=== PATIENT | female | born 1985 | race Caucasian/White ===

== ENCOUNTER 2016-06-18 05:27 | Inpatient (IN) | payer MEDICARE, MEDICAID ==
[2016-06-16 12:03] LABS: BASOPHILS 0.5 % (0.0-2.0); EOSINOPHILS 8.1 % (0-7); HEMATOCRIT 40.6 % (36.0-48.0); HEMOGLOBIN 13.8 g/dL (12-16); IMMATURE GRANULOCYTES 0.2 % (0-5); LYMPHOCYTES 46.1 % (15-50); MCH 28.1 pg (26.0-34.0); MCV 82.7 fL (80.0-100.0); MEAN PLATELET VOLUME 10.2 fL (7.4-10.4); MONOCYTES 5.2 % (2-11); NEUTROPHILS 39.9 % (40-80); RBC 4.91 10x6/uL (4.00-5.40); RDW 12.1 % (11.5-14.5); WBC 6.3 10x3/uL (4.8-10.8)
[2016-06-16 12:09] LABS: PLATELET COUNT 206 10x3/uL (130-400)
[2016-06-16 12:15] LABS: CALC OSMOLALITY 282 mosm/kg (275-300); CALCIUM 9.4 mg/dL (8.5-10.1); CARBON DIOXIDE 28.7 mmol/L (21.0-32.0); CHLORIDE - SERUM 104 mmol/L (98-107); CREATININE - SERUM 0.9 mg/dL (0.6-1.3); POTASSIUM - SERUM 4.3 mmol/L (3.5-5.1); SODIUM 139 mmol/L (136-145); UREA NITROGEN 17 mg/dL (7-18); eGFR NON AFRICAN AMERICAN 78 mL/min (90-120)
[2016-06-16 12:17] LABS: GLUCOSE 146 mg/dL (74-106)
[~2016-06-18] VITALS: Ht 162.6 cm; Wt 90.3 kg
[2016-06-18] VITALS (15 sets, daily range): BP systolic 98–148; BP diastolic 64–85; BMI 34.4; BMI 34.2
[~2016-06-18 05:27] MED LIST: ABILIFY15 MG PO; ALEVE220 MG PO; B-12 DOTS500 MCG; BYSTOLIC10 MG PO; CARAFATE1 G/10 ML PO; CELEXA40 MG PO; CYCLOBENZAPRINE10 MG PO; DEPO-PROVER150 MG/ML IM; HUMALOG 30100 UNITS/ SC; LANTUS INSULIN10 ML SC; LEVOTHROID50 MCG PO; LISINOPRIL10 MG PO; MAXALT MLT10 MG/TAB PO; NORCO 10/325 TA1 TA1 PO; NOVOLOG MIX 70/10 ML SQ; PEPCID20 MG PO; PHENERGAN25 M1 PO; PREVACID SOLUTA30 MG PO; PROAIR HFA8.5 GM INH; SEPTRA DS TABLE1 TAB PO; TIROSINT137 MCG PO; ULTRAM50 MG PO; XANAX1 MG PO; XANAX2 MG PO; ZANTAC150 MG PO; ZOFRAN4 MG PO
[2016-06-18 06:30] LABS: HCG URINE NEGATIVE (NEGATIVE)
--- NOTE | 2016-06-18 10:15 | NUR ---
PT WAS RECEIVED FROM RECOVERY ROOM . PT WAS AWAKE AND ALERT. PT WAS TRANSFERRED TO HER BED. PT IS CRYING STATING THAT SHE IS IN SO MUCH PAIN. IV LEFT WRIST IS PATENT AND SEMICONDUCTOR TESTING GROUP LEADER INITIATED. 01. MG Q 10 MIN. 0.4 MG BOLUS WAS GIVEN. PT WAS INSTRUCTED ON USE OF SEMICONDUCTOR TESTING GROUP LEADER. HIDALGO IS INTACT. URINE IS BLUE GREEN IN COLOR FROM METHYLENE BLUE. HER MOTHER IS AT BEDSIDE. LUNGS- CLEAR. HEART- RRR. ABDOMEN -SOFT WITH TENDERNESS NOTED. BIKINI LINE INCISION WITH PRIMAPORE DRESSING. CLEAN, DRY AND INTACT. EXTREMITIES WITH SCD'S. BED IS LOW, CALL LIGHT IN REACH AND SIDE RAILS UP X 2.
--- NOTE | 2016-06-18 11:30 | NUR ---
PT REFUSED SCD'S. SHE STATES THAT SHE CANNOT WEAR THEM BECAUSE SHE HAS A REATION TO THEM.
--- NOTE | 2016-06-18 11:34 | NUR ---
PT STILL CRYING WITH PAIN. GAVE HER A BOLUS OF 0.4 MG.
--- NOTE | 2016-06-18 11:50 | NUR ---
DR COOK TO SEE PT.
--- NOTE | 2016-06-18 13:19 | NUR ---
PT BLOOD SUGAR WAS 226. CALLED DR. COOK TO INFORM OF RESULTS. HE ORDERED 2 UNITS OF REGULAR INSULIN TO BE GIVEN NOW AND HE WILL PUT HER ON A SLIDING SCALE.
--- NOTE | 2016-06-18 14:35 | NUR ---
PT LYING IN BED. REQUESTS DIET SPRITE AND A CUP OF ICE. PT DENIES FURTHER NEEDS AT THIS TIME. SRU X2. BED IN LOWEST POSITION. PHONE AND CALL LIGHT WITHIN REACH.
--- NOTE | 2016-06-18 15:00 | NUR ---
REASSESSED PT BLOOD SUGAR. BLOOD SUGAR LEVEL 180 MG/DL. PT REQUESTED TO USE HER OWN FINGER STICK NEEDLE. REFUSED OURS. PT DENIES OTHER NEEDS. BED IN LOWEST POSITION. PHONE AND CALL LIGHT WITHIN REACH. SRU X2.
--- NOTE | 2016-06-18 15:15 | NUR ---
BS WAS 180. CALLED TO DR COOK. HE STATES THIS IS OK AND TO RECHECK IN 4 HRS.
--- NOTE | 2016-06-18 15:19 | NUR ---
PT LYING IN BED. HUNG NEW BAG OF NS. DENIES NEEDS AT THIS TIME. BED IN LOWEST POSITION. PHONE AND CALL LIGHT WITHIN REACH. SRU X2.
--- NOTE | 2016-06-18 15:25 | NUR ---
PT IS QUESTIONING ABOUT WHAT DR COOK PLANS ON DOING WITH HER BS'S. I TOLD HER I CALLED HIM ABOUT HER REPEAT BS BEING 180 AND HE WAS OK WITH THIS AT THIS TIME. SHE ASKED WHAT HE WAS GOING TO DO WITH HER MEDS. I TOLD HER I TRIED TO CONSULT DR NARANJO TO SEE PT AND HE DOES NOT COME TO [facility].I ASKED WHO HER PRIMARY CARE DOC IS AND SHE SAID DR TRISTIN ALCALA WHO ALSO DOES NOT COME TO [facility]. SHE STATES AN ENDOCRONOLIST IN [place] SAW HER DOING HER AND CONTROLLED HER BS'S BUT HE ONLY SEES WOMEN WHO ARE WITH DIABETES. SHE HAS AN APPT TO GET ESTABLIHED WITH DR NARANJO IN AUGUST.
--- NOTE | 2016-06-18 16:26 | NUR ---
CHANGED PTS BED PAD. NO BLOOD NOTED TO PAD. DRIED BETADINE NOTED ON PAD. PT TOLERATED WELL. REQUESTED JELLO. DENIES FURTHER NEEDS. BED IN LOWEST POSITION. SRU X2. PHONE AND CALL LIGHT WITHIN REACH.
[2016-06-18 16:35] LABS: BASOPHILS 0.1 % (0.0-2.0); EOSINOPHILS 0.6 % (0-7); HEMATOCRIT 35.5 % (36.0-48.0); HEMOGLOBIN 11.7 g/dL (12-16); IMMATURE GRANULOCYTES 0.2 % (0-5); LYMPHOCYTES 19.4 % (15-50); MCH 27.7 pg (26.0-34.0); MCV 84.1 fL (80.0-100.0); MEAN PLATELET VOLUME 10.3 fL (7.4-10.4); MONOCYTES 5.2 % (2-11); NEUTROPHILS 74.5 % (40-80); RBC 4.22 10x6/uL (4.00-5.40); RDW 12.2 % (11.5-14.5); WBC 10.1 10x3/uL (4.8-10.8)
[2016-06-18 16:37] LABS: PLATELET COUNT 157 10x3/uL (130-400)
[2016-06-18 16:47] LABS: CALCIUM 7.5 mg/dL (8.5-10.1); CARBON DIOXIDE 23.7 mmol/L (21.0-32.0); CREATININE - SERUM 1.2 mg/dL (0.6-1.3); POTASSIUM - SERUM 4.7 mmol/L (3.5-5.1)
--- NOTE | 2016-06-18 17:08 | NUR ---
PT REQUESTED TO HAVE HER BS CHECKED EARLIER. IT WAS EXPLAINED TO HER THAT DR COOK ORDERED FOR US TO CHECK 4 HOURS FROM LAST ONE WHICH WILL BE 7:00PM. SHE STATES SHE ATE SOME JELLO AND THAT SHE NEEDS 2 UNITS OF INSULIN BECAUSE HER BS IS GOING TO GO UP. SHE FINISHED THE JELLO ABOUT 1630. SHE WANTED A BS NOW. BS DONE AND IT WAS 145. SHE STILL DEMANDED INSULIN. I TOLD HER THAT I DO NOT HAVE AN ORDER FOR THIS AND COULD NOT GIVE THIS TO HER. SHE ASKED ME TO CALL THE COMMERCIAL SERVICE TECHNICIAN. I CALLED CRISTI AND EXPLAINED WHAT WAS GOING ON. SHE STATES SHE WILL TRY TO COME SOON SHE CAN. SHE HAS 3 PTS TO GET BEDS FOR.
--- NOTE | 2016-06-18 18:03 | NUR ---
DR COOK HERE TO TALK TO PT. HE IS GOING TO PUT IN NEW ORDERS
--- NOTE | 2016-06-18 19:30 | NUR ---
ASSESSMENT PER FLOW SHEET, VS PER ROLAND KRISHNAMURTHY RN, IV IN LEFT WRIST INTACT WITH NO REDNESS OR EDEMA INFUSING NS VIA PUMP AT 125 ML/HR, DILAUDID ROPEWALK ROPE MAKER FOR PAIN MANAGEMENT, SEE ERIC SHARMA WITH DRESSING INTACT WITH DRIED DRAINAGE NOTED, HIDALGO CATH INTACT DRAINING METHYLINE BLUE URINE, FRESH ICE PACK TO ABD, PT ENC TO DRINK PLENTY OF FLUIDS, PT REPORTS "A LITTLE FLATUS", PT INQUIRES ABOUT TORADOL, INFORMED PT THAT I WILL SEE IF ITS DUE AND WILL ADM IT, PT VERBALIZES UNDERSTANDING, PT REFUSE SCD'S, PT INFORMED OF WHY SCD'S NEED TO BE APPLIED, PT STILL REFUSES, PT INST ON AND DEMONSTRATED INCENTIVE SPIROMETER WITH GOOD EFFORT, SPOUSE AT BEDSIDE, TRASH REMOVED
--- NOTE | 2016-06-18 19:57 | NUR ---
ADM TORADOL SIVP PER MD ORDERS, SEE EMAR
--- NOTE | 2016-06-18 20:05 | NUR ---
PT REQUESTED AND SERVED FRESH H20, DENIES FURTHER NEEDS
--- NOTE | 2016-06-18 21:00 | NUR ---
PT REFUSED TO HAVE FSBS, STATES "I DID MY OWN", PT REPORTS FSBS 122, PT EATING SANDWICH AT THIS TIME, PT REQUESTS XANAX AT 2129, INFORMED PT THAT I WILL BRING IT IN AT THAT TIME, BEDDING PROVIDED TO SPOUSE
--- NOTE | 2016-06-18 21:28 | NUR ---
ADM XANAX PO PER MD ORDERS, SEE EMAR, PT DENIES FURTHER NEEDS
--- NOTE | 2016-06-18 22:21 | NUR ---
PT STATES "I THINK I NEED TO CHECK MY BS, I THINKS ITS GOING UP", INFORMED PT THAT I REALLY NEED TO CHECK IT AT THIS TIME, PT AGREES, FSBS 226, INFORMED PT THAT I WILL ADM INSULIN, PT VERBALIZES UNDERSTANDING, SPOUSE AT BEDSIDE
--- NOTE | 2016-06-18 22:25 | NUR ---
LISA KEN, SPORTS MANAGEMENT INTERNSHIP, NOTIFIED FOR HUMALOG
--- NOTE | 2016-06-18 22:27 | NUR ---
PT INFORMED THAT I HAD TO CALL CHOIR TEACHER FOR HUMALOG, PT STATES "I CAN JUST TAKE THE HUMILIN", INFORMED PT THAT I CANNOT ADM THAT DUE TO NO ORDER, PT THEN STATES "I HAVE MY OWN HERE, CAN I JUST TAKE IT", INFORMED PT THAT SHE CANNOT USE OWN MEDS, PT THEN STATES "WELL, IF ITS TOO LONG BEFORE I GET MY INSULIN, WE'LL HAVE TO RETAKE MY BS", INFORMED PT THAT I WILL RETAKE IT, PT REPORTS GOWN IS WET DUE TO ICE PACK LEAKING, ICE PACK REMOVED, GOWN CHANGED, PT DENIES FURTHER NEEDS, SPOUSE AT BEDSIDE
--- NOTE | 2016-06-18 23:20 | NUR ---
INSULIN TO THE FLOOR PER LISA EKN, TICK INSPECTOR
--- NOTE | 2016-06-18 23:22 | NUR ---
PT AWAKE, OBTAINED FSBS 348, ADM HUMALOG PER MD ORDERS, SEE EMAR, VERIFIED PER THIS RN AND ROLAND KRISHNAMURTHY, RN, VS OBTAINED, PT REPOSITIONED TO RIGHT SIDE WITH PILLOW BEHIND BACK AND BETWEEN KNEES, PT DENIES NEEDS, SPOUSE AT BEDSIDE
--- NOTE | 2016-06-19 00:15 | NUR ---
PT HOT TAR ROOFER HELPER LIGHT, PT REPOSITIONED TO LEFT SIDE WITH PILLOW BEHIND BACK AND BETWEEN KNEES FOR COMFORT AND SUPPORT, PT ASKS ABOUT TORADOL, INFORMED PT THAT IT WAS NOT DUE UNTIL 2AM AND THAT I WILL ADM IT THEN, PT VERBALIZES UNDERSTANDING, DENIES FURTHER NEEDS, SPOUSE AT BEDSIDE
--- NOTE | 2016-06-19 00:45 | NUR ---
PT ICT HELP DESK OFFICER LIGHT, PT TEARY EYED, REQUESTS ANOTHER DOSE OF XANAX, PT STATES "DR COOK TOLD ME I COULD HAVE ANOTHER DOSE AFTER AN HOUR IF THE FIRST DOSE DIDN'T WORK, I TAKE 1-2MG A DAY", INFORMED PT THAT I WILL HAVE TO CALL THE DR COOK
--- NOTE | 2016-06-19 01:05 | NUR ---
DR SIDDIQI NOTIFIED, REPORT OF PTS ANXIETY AND NEEDING ANOTHER DOSE OF XANAX, ORDERS RECEIVED TO ADM ANOTHER DOSE, SEE EMAR
--- NOTE | 2016-06-19 01:11 | NUR ---
ADM XANAX PO PER MD ORDERS WITH DIET COLA, PT REPOSITIONED TO RIGHT SIDE WITH PILLOW BEHIND BACK AND BETWEEN KNEES FOR COMFORT AND SUPPORT, PT AGAIN ASKS ABOUT TORADOL,INFORMED PT IT WASN'T DUE TILL 2AM AND THAT I WILL COME IN SHORTLY TO ADM IT, PT DENIES FURTHER NEEDS, SPOUSE AT BEDSIDE
--- NOTE | 2016-06-19 01:51 | NUR ---
ADM TORADOL SIVP PER MD ORDERS, SEE EMAR
--- NOTE | 2016-06-19 02:15 | NUR ---
PT RATES INC PAIN 11/14, PT STATES "I DON'T THINK THIS DILAUDID IS EVEN WORKING, IT WAS WORKING BETTER EARLIER", INFORMED PT THAT SHE IS GETTING THE SAME AMOUNT OF DILAUDID SHE HAS BEEN GETTING
--- NOTE | 2016-06-19 03:00 | NUR ---
PT FLIGHT OPERATIONS INSPECTOR LIGHT, PT REPOSITIONED TO LEFT SIDE WITH PILLOW BEHIND BACK AND BETWEEN KNEES FOR COMFORT AND SUPPORT, PT STATES "I'M FEELING A LITTLE BETTER NOW", DENIES FURTHER NEEDS, SPOUSE AT BEDSIDE
[2016-06-19 04:32] VITALS: BP 102/70
--- NOTE | 2016-06-19 04:32 | NUR ---
PT AWAKE, VS OBTAINED, FSBS 149, I&O'S COLLECTED, PT RATES INC PAIN 12/14, PUSHES LOST CHARGE CARD CLERK BUTTON AT THIS TIME, REQUESTED AND SERVED DIET COLA, PT DENIES FURTHER NEEDS
--- NOTE | 2016-06-19 05:30 | NUR ---
NEW BAG OF LR HUNG PER MD ORDERS, SEE EMAR, PT REQUESTS TO SLEEP AND NOT BE WOKE UP, INFORMED PT THAT DAY SHIFT WILL BE IN TO DO ASSESSMENT, PT STATES "I WANT TO SLEEP, I ONLY WANT THE DOCTOR TO COME IN AND WAKE ME UP BEFORE 8, I KNOW THEY CAN WAIT TILL 8 TO WAKE ME WHEN I HAVE MY BLOOD SUGAR CHECKED", INFORMED PT THAT I WILL PASS THAT ON TO DAY SHIFT, PT DENIES FURTHER NEEDS
--- NOTE | 2016-06-19 07:00 | NUR ---
SHIFT REPORT TO DAY SHIFT
[2016-06-19 07:18] LABS: BASOPHILS 0.3 % (0.0-2.0); EOSINOPHILS 5.4 % (0-7); HEMATOCRIT 32.7 % (36.0-48.0); HEMOGLOBIN 10.5 g/dL (12-16); IMMATURE GRANULOCYTES 0.2 % (0-5); LYMPHOCYTES 30.4 % (15-50); MCH 27.3 pg (26.0-34.0); MCHC 32.1 g/dL (31.0-37.0); MCV 85.2 fL (80.0-100.0); MEAN PLATELET VOLUME 10.1 fL (7.4-10.4); MONOCYTES 5.7 % (2-11); PLATELET COUNT 138 10x3/uL (130-400); RBC 3.84 10x6/uL (4.00-5.40); RDW 12.2 % (11.5-14.5)
[2016-06-19 07:19] LABS: WBC 6.1 10x3/uL (4.8-10.8)
[2016-06-19 07:36] LABS: CARBON DIOXIDE 25.2 mmol/L (21.0-32.0); CREATININE - SERUM 1.1 mg/dL (0.6-1.3); POTASSIUM - SERUM 4.2 mmol/L (3.5-5.1)
--- NOTE | 2016-06-19 07:45 | NUR ---
JOSENET AWAKE AND ALERT, SITTING UP IN HER BED. VISITOR SLEEPING ON THE FLOOR, COVERED WITH BLANKETS. DENIES NEEDS AT THIS TIME. SHE IS ANXIOUS ABOUT HER MEDICATIONS. REASSURED HER THAT WE WOULD GET THE DOSING FOR HER INSULIN ALL STRAIGHTENED OUT. DR. COOK HAS BEEN IN TO VISIT. SCD'S ARE ON AND PUMPING.
--- NOTE | 2016-06-19 08:25 | NUR ---
MARIA ALEJANDRA'S FSBS 257. SHE HAS ASSESSED HER BREAKFAST AND CALCULATED THE CARBOHYDRATES THAT ARE THERE. USING THIS AND THE VALUE OF HER FSBS SHE STATES THAT SHE SHOUULD RECEIVE 9 UNITS OF HUMALOG.
--- NOTE | 2016-06-19 08:35 | NUR ---
CALL PLACED TO DR. COOK TO CONFIRM HER DOSAGE. NEW ORDERS RECEIVED.
--- NOTE | 2016-06-19 08:40 | NUR ---
MEDICATIONS GIVEN, DISCUSSED ANOTHER BREAKFAST. HERS HAS BECOME COLD. SHE ALSO STATES THAT SHE FEELS LIKE SHE NEEDS HER BYSTOLIC AND LISINOPRIL THAT SHE TAKES AT HOME. SHE EXPLAINED CLEARLY THAT SHE CALCULATES HER CARBS FROM EXPERIENCE. 15 CARBS= 1 UNIT OF HUMALOG IN ADDITION TO THE UNITS DUE FOR SLIDING SCALE. FOR 150 FSBS SHE TAKES 2 UNITS PLUS 1 UNIT FOR EACH 25 POINTS ABOVE THAT.
[2016-06-19 10:07] VITALS: Ht 162.6 cm; Wt 90.3 kg
[2016-06-19 10:10] VITALS: BP 110/68
--- NOTE | 2016-06-19 10:10 | NUR ---
CALL PLACED TO DR. COOK REGARDING HER MEDICATIONS FOR CONFIRMATION. THE PATINET WILL AGREE TO TAKE 10U OF LANTUS THIS MORNING AND THEN THE 36 SCHEDULED UNITS THIS EVENING. RANGE OF HUMALOG GIVEN FOR PATIENT CALCULATION OF CARBS AND COVERAGE.
--- NOTE | 2016-06-19 10:30 | NUR ---
HIDALGO CATHETER REMOVED WITH THE BALLOON FULLY INTACT. IV SITE IS WITHOUT REDNESS, SIGNS OF INFILTRATION. ORAL PAIN MEDICATIONS GIVEN. PATIENT STATES THAT SHE DOESN'T WANT TO WAIT TO TAKE EITHER OF HER HEART MEDICATIONS BUT TO TAKE THEM NOW, TOGETHER. B/P 110/68. GIVEN. SPOUSE, GRANDMOTHER AT THE [facility]. ASSISTED THE PATINET TO HER FEET. SHE DENIED BEING DIZZY OR LIGHTHEADED. NO INCREASED PAIN. SHE WAS AMBULATING AROUND THE ROOM WITHOUT DIFFICULTY WHEN I LEFT THE ROOM.
--- NOTE | 2016-06-19 12:10 | NUR ---
FSBS 233. SHE CALCULATED INSULIN DOSE FOR COVERAGE. RESTING IN BED/ HI BERG. NO OTHER NEEEDS VOICED.
--- NOTE | 2016-06-19 13:45 | NUR ---
MARIA ALEJANDRA OUT AMBULATING IN THE HALLWAY WITH FAMILY.
--- NOTE | 2016-06-19 14:30 | NUR ---
PATIENT CALLED FOR A PERCOCET AND XANAX. SHE RATES HER PAIN A 7. LIGHTS ARE OUT. SPOUSE RESTING IN THE BEDSIDE CHAIR.
--- NOTE | 2016-06-19 15:01 | NUR ---
PATIENT RESTING QUIETLY WITH EYES CLOSED. LIGHTS OUT, SPOUSE IN THE BED SDIE CHAIR ALSO RESTING WITH EYES CLOSED.
--- NOTE | 2016-06-19 15:21 | NUR ---
PATIENT OUT AMBULATING IN THE HALLWAY.
--- NOTE | 2016-06-19 16:27 | NUR ---
PATINET RESTING QUIETLY WITH EYES CLOSED. LIGHTS OUT. DID NOT DISTURBED.
--- NOTE | 2016-06-19 18:05 | NUR ---
PATIENT MEDICATED FOR PAIN SHE RATES AN 8. WILL F/U WITH A PERCOCET AT REASSESSMENT IF REMAINS ELEVATED. SHE DECLINES HER HUMALOG AT THIS. DENIES HUNGER. WANTS LANTUS AT 2100.
--- NOTE | 2016-06-19 18:30 | NUR ---
PATIENT SITTING UP ON THE BEDSIDE. PERCOCET GIVEN. WISHED HER LICK WITH HER RECOVERY
--- NOTE | 2016-06-19 19:05 | NUR ---
RCVD PT FROM DAY SHIFT RN. PT SITTING IN BED, HOB 45 DEGREES. PT REPORTS PAIN 7/10 UNRELIEVED BY PERCOCET GIVEN 1 HR PREVIOUSLY. EDU PT ON PAIN MEDICATIONS AND COMFORT MEASURES TO RELIEVE ABD/INCISIONAL PAIN. PT VERBALIZED UNDERSTANDING. WARM BLANKET PLACED OVER INCISION. PERIPAD PLACED ON INCISION TO KEEP DRY. INCISION C/D/I WITH HAM. 18 PIV TO LT WRIST SL NOTED. HEART S1, S2. BREATH SOUNDS CLEAR & UNLABORED X2. BOWEL SOUNDS ACTIVE X4. SKIN WARM AND DRY. NO EDEMA NOTED. NO DISCHARGE NOTED ON PERIPAD. NO BLOOD NOTED OR REPORTED. PT IS VOIDING WELL AT THIS TIME. PT REPORTS SHE HAS NOT SHOWERED. EDU PT ON COMFORT MEASURES FOR PAIN WITH SHOWERING. PT VERBALIZED UNDERSTANDING. PT ON REGULAR DIET. PT REPORTS NOT TAKING LANTUS LAST DOSE AND REQUESTS NEXT DOSE TO BE GIVEN @ 2100. PT REPORTS NOT EATING DINNER STATING "THE HAMBURGER TASTES LIKE CARDBOARD." ADV PT WILL LOCATE A SANDWICH TRAY WE HAVE NONE ON THIS UNIT. PT VERBALIZED UNDERSTANDING. PT REQUESTS STOOL SOFTENER. PER ORDERS DR NIÑO MAY GIVE DOCULAX PO. PT DENIES FURTHER NEEDS AT THIS TIME. BED LOW. WHEELS LOCKED. CL IN REACH. SIDE RAILS UP X2.
[2016-06-19 19:10] VITALS: BP 96/57
--- NOTE | 2016-06-19 21:41 | NUR ---
PEPCID GIVEN PER ORDERS. SEE EMAR. LANTUS 36 U GIVEN PER ORDERS @ 2146 VIA INSULIN SYRINGE. VERIFIED AMOUNT WITH Aron KRISHNAMURTHY RN. AND SHOWN TO PT. PT VERBALIZES UNDERSTANDING. INJ GIVEN SUB Q IN LEFT ARM. PT ZENOBIA. WELL. WARM BLANKET PROVIDED TO PLACE ON ABD. PT SAYS THE WARMTH HELPS SOME. DENIES FURTHER NEEDS. WILL CONTINUE TO MONITOR.
--- NOTE | 2016-06-19 21:41 | NUR ---
PT C/O PAIN 01/14 @ INCISION. PT REQUESTS & RECEIVES PERCOCET X1 TAB. SEE EMAR. PT DENIES FURTHER NEEDS AT THIS TIME.
--- NOTE | 2016-06-19 22:30 | NUR ---
PAIN REASSESSMENT COMPLETED AT THIS TIME. PT RATES PAIN 6/10 CURRENTLY AND SAYS IT'S FEELING SOMEWHAT BETTER. PT DENIES FURTHER NEEDS AT THIS TIME.
--- NOTE | 2016-06-19 22:35 | NUR ---
XANAX AND DULCOLAX GIVEN PER ORDERS. SEE EMAR. PT RATES PAIN 9/10 CURRENTLY AND STATES, "I JUST CAN'T GET COMFORTABLE BECAUSE OF THE PAIN." EDU PT ON COMFORT MEASURES OF POSITIONING, SHOWERING FOR HEAT, AND WARM BLANKET OVER INCISION. PT VERBALIZES UNDERSTANDING AND DENIES FURTHER NEEDS AT THIS TIME.
--- NOTE | 2016-06-19 23:43 | NUR ---
PT C/O IV IRRITATING AND SKIN ITCHING AROUND SITE. PT REQUESTS REMOVAL. PIV D/C AT THIS TIME. CATH TIP INTACT. BANDAID PLACED OVER SITE. PT ZENOBIA WELL. PT REQUESTS & RECEIVES MOTRON 600 MG X1 TAB FOR PAIN RATED 7/10. PT ALSO REQUESTS & RECEIVES ICE AND DIET COLA. PT DENIES FURTHER NEEDS AT THIS TIME. WILL CONTINUE POC.
[2016-06-19 23:50] VITALS: BP 101/64
--- NOTE | 2016-06-20 00:36 | NUR ---
PT OUT OF ROOM TO GET CUP OF ICE. PT RATES PAIN 8/10 CURRENTLY AND STATES "I'M STARTING TO GET ANTSY BECAUSE OF THE PAIN AND NEEDED TO GET UP." PT REQUESTS & RECEIVES ANOTHER WARM BLANKET TO PLACE ON ABD AND DENIES FURTHER NEEDS.
--- NOTE | 2016-06-20 01:28 | NUR ---
PAIN 7/10 TO ABD, SHARP/SHOOTING/ACHING THAT IS CONSTANT. PERCOCET GIVEN PER ORDER. PT REQUESTED FSBS TO BE CHECKED "I JUST FEEL WERID." FSBS DONE PER PT REQUEST WITH A READING OF 225, PT STATES THAT SHE IS GOING TO TRY TO REST FOR A "BIT ONCE THE PAIN MED KICKS IN." WILL CONT MONITOR AND ASSIST PRN.
--- NOTE | 2016-06-20 02:42 | NUR ---
pt to nurse desk with c/o pain 01/14 in abd at this time. pt states "no matter what I do the pain doesn't go away and I just keep waking up. It feels like someone is poking me with a hot poker and just stabbing me with it." edu pt on comfort measures, warm shower, repositioning in bed, etc. pt verbalizes understanding. says she is "going to walk with to the vending machine." edu pt on pain medication schedule. pt verbalizes understanding. will continue poc.
[2016-06-20 04:14] VITALS: BP 114/56
--- NOTE | 2016-06-20 04:15 | NUR ---
PAIN 5/10, MOTRIN GIVEN, SEE EMAR. MIMS. SPOUSE AT BEDSIDE. PT REQUESTED PERCOCET STATING THAT SHE DOESN'T REMEMBER TAKING IT. REVIEWED WITH PT THAT MED WAS GIVEN AT 0128. SPOUSE TOLD PT THAT SHE HAD TAKEN PAIN MEDICATION. DENIES NEEDS AT THIS TIME. WILL CONT TO MONITOR.
--- NOTE | 2016-06-20 04:58 | NUR ---
PAIN REASSESSMENT COMPLETED. PT SLEEPING AT THIS TIME. RESPIRATIONS REGULAR, NO S/S OF DISTRESS NOTED.
--- NOTE | 2016-06-20 05:31 | NUR ---
PERCOCET X1 TAB GIVEN PER PT REQUEST. PT DENIES FURTHER NEEDS AT THIS TIME. WILL CONTINUE TO MONITOR.
--- NOTE | 2016-06-20 06:22 | NUR ---
PAIN REASSESSMENT COMPLETED. PT RESTING. EYES CLOSED, RESP EVEN & UNLABORED, PT SNORING LOUDLY. PT LEFT UNDISTURBED AT THIS TIME.
[2016-06-20 07:35] VITALS: BP 103/69
--- NOTE | 2016-06-20 07:35 | NUR ---
PT CALLS ON LIGHT. THIS NURSE TO ROOM. PT STATES "I THINK IT'S TIME FOR MY MEDICINE". VSS.
--- NOTE | 2016-06-20 07:55 | NUR ---
PT AWAKE, ALERT, ORIENTED, UP AND ABOUT IN ROOM AND HALLWAY. LOW TRANSVERSE ABD INC C/D/I WITH HAM. FSBS 292, HUMALOG 11 U GIVEN PER PT SLIDING SCALE. SIG OTHER ASLEEP IN FLOOR. DIET PROVIDED. PT ANTICIPATES D/C WHEN DR. NIÑO HERE FOR ROUNDS.
--- NOTE | 2016-06-20 09:07 | NUR ---
PT C/O RADIATING PAIN OF "7" ON 0-10 PAIN SCALE FROM "LOWER ABDOMEN TO BACK AND DOWN HIPS". PERCOCET 10/325 GIVEN PO ORDERED. PT INSTRUCTED ON MED. VERBALIZES UNDERSTANDING. PT REFUSES XANAX AT THIS TIME. STATES "IT'S ONLY NEEDED AND I DON'T NEED IT RIGHT NOW".
--- NOTE | 2016-06-20 09:54 | NUR ---
SITTING UP IN BED. STATES PAIN RELIEF WITH RX.
--- NOTE | 2016-06-20 10:40 | NUR ---
DR. NIÑO HERE FOR ROUNDS.
[2016-06-20] MEDS ORDERED: PERCOCET 10/3251 TA1 PO (11:19)
[2016-06-20] MEDS ORDERED: MOTRIN600 MG PO (11:19)
--- NOTE | 2016-06-20 11:46 | NUR ---
D/C INSTRUCTIONS EXPLAINED TO PT. VOICED UNDERSTANDING. COPIES OF ALL GIVEN, WELL WRITTEN RX'S FOR PERCOCET 10 AND MOTR[address] COOK. D/C'D HOME VIA W/C TO PRIVATE CAR.
--- NOTE | 2016-06-24 12:41 | OP ---
PATIENT NAME: MALIK RIZVI MEDICAL RECORD: [id number] :86 LOCATION:[id number] ADMISSION DATE:06/18/16 SURGEON: SUDHEER VICTORIA MD DATE OF OPERATION: 06/18/2016 PREOPERATIVE DIAGNOSES: Menorrhagia and pelvic pain. POSTOPERATIVE DIAGNOSES: 1. Likely adenomyosis 2. Pelvic adhesions. PROCEDURE: Total abdominal hysterectomy and lysis of adhesions. SURGEON: Sudheer Victoria MD ESTIMATED BLOOD LOSS: 300 cc. ANESTHESIA: General endotracheal. INTRAVENOUS FLUIDS: Per anesthesia records. SPECIMENS: Uterus with cervix. FINDINGS: 1. Dense adhesions involving the distal fallopian tubes and infundibulopelvic ligaments. 2. Soft appearing uterus with irregular contour consistent with known history of a bicornuate uterus. 3. Uterus consistent with adenomyosis. 4. Dense adhesive disease involving the bladder and lower uterine segment/cervix. COMPLICATIONS: None apparent. PROCEDURE IN DETAIL: The patient was taken to the operating room where general anesthesia was achieved without difficulty. The patient was then prepped and draped in normal sterile fashion in the dorsal supine position. Massey catheter had been placed. A repeat Pfannenstiel skin incision was made and carefully dissected downward through the underlying subcutaneous fat to level of the fascia. Dense fascial adhesions were noted and the fascia was taken down carefully using the scalpel and Yanez scissors. Following the excision of the fascial line bilaterally, the superior aspect of the fascial incision were grasped with Nieves clamps times 2, tented upward and carefully dissected from the underlying rectus muscle using the Bovie cautery and Yanez scissors. This process was repeated on the lower aspect of the incision as well. At this point, between the rectus muscles, omentum was noted and carefully dissected into the intraperitoneal space. The bladder was identified and careful dissection of the omentum using a curved Mona clamps and 2-0 Vicryl ties was performed. A moist lap sponge was then used to pack the small bowel and the uterus was exteriorized through the incision and grasped on its cornua using Nieves clamps. At this point, the bilateral round ligaments were identified, clamped times 2 with Nieves clamps, cut and suture ligated with 0 Vicryl sutures. A bladder flap was developed by excising the anterior leaf of the broad ligament across the lower uterine segment. Careful dissection was performed to remove the bladder from the cervix. At this point, a defect was OPERATIVE REPORT [id number] MALIK RIZVI made bilaterally in the posterior leaf of the broad ligament and the uteroovarian ligament and proximal fallopian tube were clamped times 2 using curved Romel clamps, cut and suture ligated using 0 Vicryl times 2. The uterine arteries were then skeletonized bilaterally and clamped with curved Romel clamps. These were cut and suture ligated with 0 Vicryl. The cardinal ligaments were then clamped with straight Romel clamps, cut and suture ligated using 0 Vicryl. The uterosacral ligaments were identified bilaterally, curved Romel clamps were then placed across to the corner of the vagina and the cervix was then removed from the vagina using the Yanez scissors. The vaginal defect was then repaired with 0 Vicryl in an interrupted [id number] fashion with good hemostasis noted. Attention was then turned to the bilateral adnexa where the distal end of the fallopian tube was found to be densely adherent to the infundibulopelvic ligament and felt at that time that dissection of the fallopian tubes would likely result in a unilateral or bilateral oophorectomy, so the tubes were left alone. Good hemostasis was noted from all surgical sites. FloSeal was placed on the surgical sites. Counts were correct times 2. The fascia was then repaired with 0 loop PDS times 1 in a running fashion. The subcutaneous tissue was approximated using 2-0 plain gut and the skin repaired with aliza. The patient tolerated the procedure well, was transferred to postanesthesia recovery stable without incident. TRANSINT:[id number] Voice Confirmation ID: [id number] DOCUMENT ID: [id number] SUDHEER VICTORIA MD at 1240 CC: [id number] DICTATION DATE: 06/18/16 1149 HISTOLOGIST: 06/18/16 1212 ADM IN [place] [id number] [place] [address]
== END 2016-06-20 11:47 | disposition home or self-care (01) | DRG 743 ==
LOC: D.WS 05:27 → D.SDCHOLD 05:27 → D.WS 10:13
PROVIDERS: ADMIT Obstetrics & Gynecology
PROC: 0UTC0ZZ Resection of Cervix, Open Approach (ICD-10-PCS; 2016-06-18)
PROC: 0UN90ZZ Release Uterus, Open Approach (ICD-10-PCS; 2016-06-18)
PROC: 0UN70ZZ Release Bilateral Fallopian Tubes, Open Approach (ICD-10-PCS; 2016-06-18)
PROC: 0UT90ZZ Resection of Uterus, Open Approach (ICD-10-PCS; principal; 2016-06-18 07:30)
DX: N92.0 Excessive and frequent menstruation with regular cycle (principal); N80.0 Endometriosis of uterus; N73.6 Female pelvic peritoneal adhesions (postinfective); E03.9 Hypothyroidism, unspecified; E10.43 Type 1 diabetes mellitus with diabetic autonomic (poly)neuropathy; K31.84 Gastroparesis; Z79.4 Long term (current) use of insulin; I10 Essential (primary) hypertension; J45.909 Unspecified asthma, uncomplicated; F31.9 Bipolar disorder, unspecified; Z72.0 Tobacco use

== ENCOUNTER → 2016-11-09 12:50 | Outpatient (CLI) | payer MEDICARE, MEDICAID ==
[2016-06-19 10:07] VITALS: BMI 34.1
[~2016-11-09 12:50] MED LIST changes: +MOTRIN600 MG PO; +PERCOCET 10/3251 TA1 PO
== END | disposition home or self-care (01) ==
LOC: D.RAD 12:50
DX: K21.0 Gastro-esophageal reflux disease with esophagitis (principal); R11.2 Nausea with vomiting, unspecified; R10.30 Lower abdominal pain, unspecified; R14.2 Eructation; K59.00 Constipation, unspecified; K64.9 Unspecified hemorrhoids